=== PATIENT | female | born 1950 | race Caucasian/White ===

== ENCOUNTER 2018-06-13 12:25 | Emergency (ER) | payer OTHER, MEDICAID ==
[~2018-06-13] VITALS: Ht 157.5 cm; Wt 47.6 kg
--- NOTE | 2018-06-13 12:41 | NUR ---
PT IS IN ROOM #2A. DR MCBRIDE EVALUATED THE PT.
--- NOTE | 2018-06-13 13:24 | NUR ---
PT WAS D/C'd TO HOME. D/C INSTRUCTIONS GIVEN TO THE PT.
[2018-06-13 13:25] VITALS: BP 129/75
== END 2018-06-13 13:26 | disposition home or self-care (01) ==
LOC: ER 12:25
DX: J30.81 Allergic rhinitis due to animal (cat) (dog) hair and dander (principal)
CPT/HCPCS: 71045; 99283; A4663

== ENCOUNTER 2018-06-27 14:29 | Emergency (ER) | payer OTHER, MEDICAID ==
[~2018-06-27] VITALS: Ht 157.5 cm; Wt 47.6 kg
--- NOTE | 2018-06-27 15:50 | NUR ---
MSE COMPLETED, PT D/C'D HOMED, ACI/RX X2 GIVEN AND CD COPY OF XRAYS GIVEN. PT AMBULATED W/O DIFF/TOOK ALL BELONGINGS.
[2018-06-27 16:16] VITALS: BP 109/74
== END 2018-06-27 15:50 | disposition home or self-care (01) ==
LOC: ER 14:31
DX: J30.9 Allergic rhinitis, unspecified (principal)
CPT/HCPCS: 71046; A4663

== ENCOUNTER 2019-05-19 17:42 | Emergency (ER) | payer OTHER, MEDICAID ==
[~2019-05-19] VITALS: Ht 157.5 cm; Wt 45.4 kg
--- NOTE | 2019-05-19 20:06 | NUR ---
Patient left without being seen by ER physician.
== END 2019-05-19 20:10 | disposition left against medical advice (07) ==
LOC: ER 17:42
DX: Z53.21 Procedure and treatment not carried out due to patient leaving prior to being seen by health care provider (principal)
CPT/HCPCS: A4663